=== PATIENT | female | born 1980 ===

== ENCOUNTER 2022-03-17 10:35 | Outpatient (CLI) | payer OTHER | END 2022-03-17 10:46 | disposition home or self-care (01) | LOC: SONOGRAMA 10:35 | PROVIDERS: ATTEND Pathology Anatomic Pathology | DX: E04.1 Nontoxic single thyroid nodule (principal) ==

== ENCOUNTER 2023-05-15 07:44 | Outpatient (CLI) | payer OTHER | END 2023-05-15 07:55 | disposition home or self-care (01) | LOC: SONOGRAMA 07:44 | PROVIDERS: ATTEND Pathology Anatomic Pathology & Clinical Pathology | DX: D34 Benign neoplasm of thyroid gland (principal); E04.9 Nontoxic goiter, unspecified ==